=== PATIENT | male | born 1980 | race Caucasian/White ===

== ENCOUNTER 2023-04-19 23:47 | Emergency (ER) | payer OTHER ==
[~2023-04-19] VITALS: Ht 165.1 cm; Wt 76.2 kg
[~2023-04-19 23:47] MED LIST: CEPH500 PO; HYDACE5 PO; SULTRIDS PO
[2023-04-20 01:12] VITALS: BP 135/99
== END 2023-04-20 01:12 | disposition home or self-care (01) ==
LOC: ER 23:47
DX: S70.12XA Contusion of left thigh, initial encounter (principal); W01.0XXA Fall on same level from slipping, tripping and stumbling without subsequent striking against object, initial encounter
CPT/HCPCS: 99283

== ENCOUNTER 2024-05-10 12:51 | Emergency (ER) | payer OTHER ==
[~2024-05-10] VITALS: Ht 165.1 cm; Wt 81.7 kg
[2024-05-10] MEDS ORDERED: Ketorolac Tromethamine 30mg Vial IM ONE (13:00)
== END 2024-05-10 13:44 | disposition home or self-care (01) ==
LOC: ER 12:51
DX: S39.012A Strain of muscle, fascia and tendon of lower back, initial encounter (principal); X50.9XXA Other and unspecified overexertion or strenuous movements or postures, initial encounter
CPT/HCPCS: 72100; 96372; 99283-25; J1885